=== PATIENT | male | born 1990 | race Caucasian/White ===

== ENCOUNTER 2017-04-30 20:01 | Emergency (ER) | payer OTHER ==
[2017-04-30] MEDS ORDERED: THIAMINE HCL 200 MG/2 ML VIAL ONE (20:40)
[2017-04-30] MEDS ORDERED: NORMAL SALINE 2,000 ML IV ONE (20:41)
[2017-04-30 21:42] LABS: BLOOD UREA NITROGEN 9 mg/dL (9-20); CALCIUM 9.5 mg/dL (8.4-10.2); CHLORIDE 102 mmol/L (98-107); EST GLOMERULAR FILTRATION RATE > 60 mL/min; GLUCOSE 104 mg/dL (70-100); MAGNESIUM 1.8 mg/dL (1.6-2.3); POTASSIUM 4.5 mmol/L (3.5-5.1); SODIUM 148 mmol/L (137-145)
[2017-04-30 22:00] LABS: ETHYL ALCOHOL 500 mg/dL (<10)
[2017-04-30] MEDS ORDERED: PIGGYBACK IV ONE (23:26)
[2017-04-30] MEDS ORDERED: MAGNESIUM SULFATE IV ONE (23:26)
[2017-04-30] MEDS ORDERED: NORMAL SALINE 1,000 ML IV ONE (23:26)
[2017-04-30] MEDS ORDERED: GABAPENTIN 300 MG CAPSULE PO ONE (23:28)
[2017-05-01 03:45] LABS: BLOOD UREA NITROGEN 7 mg/dL (9-20); CALCIUM 8.3 mg/dL (8.4-10.2); CHLORIDE 107 mmol/L (98-107); EST GLOMERULAR FILTRATION RATE > 60 mL/min; GLUCOSE 101 mg/dL (70-100); POTASSIUM 3.8 mmol/L (3.5-5.1); SODIUM 145 mmol/L (137-145)
[2017-05-01 03:53] LABS: ETHYL ALCOHOL 318 mg/dL (<10)
--- NOTE | 2017-05-01 04:15 | ER NURSING DOCUMENTATION ---
Nurse's Notes [facility] Name:Naren Hsu Age:26 yrs Sex:Male :1990 Arrival Date:04/30/2017 Time:20:01 BedTrauma-A Private MD: Diagnosis:Alcohol Abuse Presentation: 04/30 20:05 Presenting complaint: [facility] states that he went to facility for detox and pt blew bw2 over 500. pt has a strong odor of alcohol. Transition of care: [facility]. 20:05 Acuity: ALCIDES 2 bw2 20:05 Method Of Arrival: Walk In bw2 20:06 Acuity: ALCIDES 3 sc1 Triage Assessment: 20:07 General: Appears in no apparent distress, unkempt, Behavior is anxious, appropriate for bw2 age. Pain: Denies pain. Respiratory: No deficits noted. GI: No deficits noted. : No deficits noted. Historical: - Allergies: No known drug Allergies; - Home Meds: 1. Tramadol Oral - Tetanus: unknown. - Ebola Screening: : Patient negative for fever greater than or equal to 101.5 degrees Fahrenheit, and additional compatible Ebola Virus Disease symptoms. Patient denies exposure to infectious person. Patient denies travel to an Ebola-affected area in the 21 days before illness onset. No symptoms or risks identified at this time. . - Family history: Father has/had alcoholism, hepatitis C, liver failure. - Immunization history: Flu Vaccine None. - Social history: Smoking status: Patient uses tobacco products, current every day smoker. - Hospitalizations: : 3mo ago [facility] liver failure. Screenin:08 Infectious Disease Risk None. Abuse screen: Denies threats or abuse. Nutritional bw2 screening: No deficits noted. Suicide Risk Assessment: Unable to obtain due to condition. Suicidal Thinking Present - No ( 0 points). Assessment: 20:08 See Triage Assessment done by same RN. bw2 Vital Signs: 20:07 BP 132 / 92; Pulse 107; Resp 20; Temp 97.8(T); Pulse Ox 95% on R/A; Weight 77.11 kg bw2 (R); Height 5 ft. 5 in. (165.10 cm); Pain 0/10; 21:50 BP 124 / 85; Pulse 92; Resp 16; Pulse Ox 95% on R/A; Pain 0/10; rh 05/01 02:57 BP 122 / 74; Pulse 78; Resp 18; Pulse Ox 95% on R/A; bw2 04/30 20:07 Body Mass Index 28.29 (77.11 kg, 165.10 cm) bw2 ED Course: 04/30 20:02 Patient arrived in ED. ama 20:05 Abby Cooper is Primary Nurse. bw2 20:06 Triage completed. sc1 20:09 Valuables Remains with patient Patient has correct armband on for positive bw2 identification. Placed in gown. 20:10 Inserted peripheral IV: 20 gauge in left antecubital area and blood collected. bw2 20:26 Arsen Fuentes MD is Attending Physician. ak 22:00 Notified ED physician, critical lab value for ETOH with actual value of 500 No new rh orders received at this time. 22:29 Family younger brother contacted per request of pt. bw2 22:30 pt is highly aggitated. pt is upset that [facility] refuses to except pt due to blood 2 alcohol level. pt is requesting to leave. pt refuses medication that is recommend. pt refuses to stay on monitors. 22:39 Diet: pt offered snacks and pizza. pt refused. bw2 22:53 Patient requests liquids. water given to pt per request. bw2 05/01 02:57 No apparent distress. pt ambulated to the bathroom. bw2 03:30 Accessed REDRAW LABS FOR BA TEST. em1 03:37 Resting quietly. bw2 04:00 [facility] is Referral Physician. ak Administered Medications: 04/30 20:30 Drug: Thiamine 100 mg; Route: IVPB; Site: left antecubital; bw2 21:51 Follow up: IV Status: Completed infusion 20:30 Drug: NS 0.9% 2000 ml; Route: IV; Rate: bolus; Site: left antecubital; bw2 21:51 Follow up: IV Status: Completed infusion 23:22 Drug: Magnesium Sulfate 2 grams; Route: IVPB; Infused Over: 2 hrs; Site: left [facility] antecubital; 05/01 00:53 Follow up: IV Status: Completed infusion bw2 04/30 23:22 Drug: Gabapentin 600 mg; Route: PO; 2 23:25 Follow up: Response: No adverse reaction bw2 Outcome: 05/01 04:01 Discharge ordered by . huma 04:02 Discharged to [place] [id number] 04:02 Condition: good 04:02 Report given to [facility] at [facility] 04:02 Discharge Assessment: Patient awake, alert and oriented x 3. No cognitive and/or functional deficits noted. Patient verbalized understanding of disposition instructions. 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 Demonstrated understanding of instructions. 04:14 Patient left the ED. 2 Signatures: Arlen Vallejo RN RN sc1 [facility], [facility] em1 [facility], Reg Reg daylin Becker, Tierney Kenneth [facility]2 Arsen Fuentes MD MD ak
--- NOTE | 2017-05-01 04:15 | ER PHYSICIAN DOCUMENTATION ---
Physician Documentation [facility] Name:Naren Hsu Age:26 yrs Sex:Male :1990 Arrival Date:04/30/2017 Time:20:01 BedTrauma-A Private MD: Arsen Lopez Disposition: 05/01/17 04:01 Discharged to [facility]. Impression: Alcohol Abuse. - Condition is Good. - Discharge Instructions: Abuse, Alcohol - ALCOHOL WITHDRAWAL, Abuse, Alcohol - ALCOHOL ABUSE. - Medical Reconciliation form form. - Follow up: [facility] [place]; When: Today. - Problem is an ongoing problem. - Symptoms have improved. HPI: 04/30 20:57 This 26 yrs old Male presents to ER via Walk In with complaints of ETOH Abuse.ak 20:57 pt states he feels tired and was told he must come to ED by [facility]. he ak states he has no other acute complaint. he has no si or hi. states he has had heavy etoh use since age 22 and 3mo ago had acute alcoholic hepatitis, in hospital in [place] (where he is from ) for several days, recovered, continues to drink. denies any recent jaundice or ruq pain. has no physical complaint other than feeling tired. did have etoh this am. denies ever having any withdrawal incl during hosp with several days of sobriety, not tremulous, no anxiety, no ams. does not have any other acute complaint or request. . Onset: The symptom(s)/episode began/occurred no onset. Severity of symptoms: At their worst the symptoms were no symptoms other than feeling tired. The patient has experienced similar episodes in the past, states tired of drinking, would like to go back to rehab to quit. Historical: - Allergies: No known drug Allergies; - Home Meds: 1. Tramadol Oral - Tetanus: unknown. - Ebola Screening: : Patient negative for fever greater than or equal to 101.5 degrees Fahrenheit, and additional compatible Ebola Virus Disease symptoms. Patient denies exposure to infectious person. Patient denies travel to an Ebola-affected area in the 21 days before illness onset. No symptoms or risks identified at this time. . - Family history: Father has/had alcoholism, hepatitis C, liver failure. - Immunization history: Flu Vaccine None. - Social history: Smoking status: Patient uses tobacco products, current every day smoker. - Hospitalizations: : 3mo ago [facility] liver failure. ROS: 21:07 Constitutional: Positive for fatigue, Negative for chills, fever, malaise. ak 21:07 Cardiovascular: Negative for chest pain, edema, orthopnea, palpitations, paroxysmal nocturnal dyspnea. 21:07 Respiratory: Negative for cough, dyspnea on exertion, orthopnea, shortness of breath, sputum production. 21:07 Abdomen/GI: Negative for abdominal pain, nausea, vomiting, diarrhea. 21:07 Neuro: Negative for altered mental status, gait disturbance, headache, hearing loss, numbness, seizure activity, speech changes, syncope. 21:07 Psych: Positive for alcohol dependence, Negative for anxiety, depression, drug dependence, auditory hallucinations, visual hallucinations, homicidal ideation, insomnia, suicide gesture, suicidal ideation, acute changes. 21:07 All other systems are negative. Exam: 21:08 Constitutional: The patient appears in no acute distress, alert, awake. ak 21:08 Cardiovascular: Rate: tachycardic, Rhythm: regular, Pulses: Pulses are 2+ in right radial artery, right posterior tibial artery, left radial artery and left posterior tibial artery. Heart sounds: normal, Edema: is not appreciated, JVD: is not appreciated. 21:08 Respiratory: Respirations: normal, Breath sounds: are normal, clear throughout. 21:08 Abdomen/GI: Inspection: abdomen appears normal, Bowel sounds: normal, Palpation: abdomen is soft and non-tender, in all quadrants. 21:08 Neuro: Orientation: is normal, to person, place, time & situation. Mentation: is normal, Memory: is normal, Cerebellar function: steady gait when ambulating into ED and when ambulating to restroom, Motor: is normal, Sensation: is normal. 21:08 Psych: Behavior/mood is pleasant, cooperative, tearful at one point but with brief reassurance this improves. Oriented to person, place, time, Patient has no thoughts/intents to harm self or others. Judgement / Insight is normal. Memory is normal. Delusions/hallucinations are not present. Vital Signs: 20:07 BP 132 / 92; Pulse 107; Resp 20; Temp 97.8(T); Pulse Ox 95% on R/A; Weight 77.11 kg bw2 (R); Height 5 ft. 5 in. (165.10 cm); Pain 0/10; 21:50 BP 124 / 85; Pulse 92; Resp 16; Pulse Ox 95% on R/A; Pain 0/10; rh 05/01 02:57 BP 122 / 74; Pulse 78; Resp 18; Pulse Ox 95% on R/A; bw2 04/30 20:07 Body Mass Index 28.29 (77.11 kg, 165.10 cm) bw2 MDM: 04/30 20:28 Patient medically screened. ak 21:10 Differential Diagnosis alcohol abuse, alcohol intoxication, alcohol dependence with ak threat of withdrawal, dehydration, vitamin deficiency. Data reviewed: vital signs, nurses notes, and as a result, I will discharge patient, administer IV fluids, NS bolus. Counseling: I had a detailed discussion with the patient and/or guardian regarding: the historical points, exam findings, and any diagnostic results supporting the discharge/admit diagnosis, lab results, radiology results, the need for outpatient follow up, rehab. ED course: tachycardic and dry tongue, resolved after ivf, now doing well, will d/w pt who wishes to return to [facility]. 22:12 ED course: 1012 awake, pt would like to leave, no slurred speech or acute etoh intox ak clinically but has very elev etoh, pt would like his mother contacted so will assist with that, encouraging to stay in ED, further treatment, oral hydration with water, repeat lab, mag repletion. pt is reasonable but frustrated about not being able to return to [facility] at this time. . 04/30 22:01 Order name: BASIC METABOLIC PANEL; Complete Time: 22: EDWI 04/30 22:01 Order name: MAGNESIUM; Complete Time: 22: EDWI 04/30 22:01 Order name: PHOSPHORUS; Complete Time: 22:06 EDMS 04/30 22:01 Order name: ETHYL ALCOHOL; Complete Time: 22:06 EDWI 05/01 03:54 Order name: BASIC METABOLIC PANEL; Complete Time: 03:58 EDMS 05/01 03:54 Order name: MAGNESIUM; Complete Time: 03:58 EDMS 05/01 03:54 Order name: ETHYL ALCOHOL; Complete Time: 03:58 EDWI 04/30 22:11 Order name: PO Challenge: food, water; Complete Time: 22:20 ak 04/30 22:18 Order name: I & O; Complete Time: 22:20 ak Dispensed Medications: 20:30 Drug: Thiamine 100 mg; Route: IVPB; Site: left antecubital; [facility] 21:51 Follow up: IV Status: Completed infusion [facility] 20:30 Drug: NS 0.9% 2000 ml; Route: IV; Rate: bolus; Site: left antecubital; 2 21:51 Follow up: IV Status: Completed infusion [facility] 23:22 Drug: Magnesium Sulfate 2 grams; Route: IVPB; Infused Over: 2 hrs; Site: left [facility] antecubital; 05/01 00:53 Follow up: IV Status: Completed infusion [facility] 04/30 23:22 Drug: Gabapentin 600 mg; Route: PO; [facility] 23:25 Follow up: Response: No adverse reaction [facility] Signatures: Abby Cooper 2 Arsen Fuentes MD MD ne
== END 2017-05-01 04:15 ==
LOC: ER 20:01 → EEVIPCON 20:01 → ER 05-01 04:15
DX: F10.229 Alcohol dependence with intoxication, unspecified (principal); R53.83 Other fatigue; R00.0 Tachycardia, unspecified; F17.210 Nicotine dependence, cigarettes, uncomplicated
CPT/HCPCS: 80048; 80320; 83735; 84100; 96365; 96366; 96367; 99284; J3475; J7030